=== PATIENT | male | born 1965 | race African-American/Black ===

== ENCOUNTER 2019-02-25 09:19 | Emergency (ER) | payer SELFPAY ==
[~2019-02-25] VITALS: Ht 185.4 cm; Wt 80.1 kg
[2019-02-25 09:27] VITALS: Ht 185.4 cm; Wt 80.1 kg
[2019-02-25 10:12] LABS: PLATELET COUNT 312 x10^3mcL (130-400)
[2019-02-25 10:29] LABS: CARBON DIOXIDE 25.6 mmol/L (21-32); CHLORIDE SERUM 98 mmol/L (98-107); CREATININE SERUM 1.3 mg/dL (0.7-1.3); GFR1 > 60 mL/min; GLUCOSE SERUM 195 mg/dL (74-106); POTASSIUM SERUM 3.8 mmol/L (3.5-5.1); SODIUM SERUM 134 mmol/L (136-145)
[2019-02-25 10:33] LABS: ALBUMIN 3.7 g/dL (3.4-5.0); ALKALINE PHOSPHATASE 93 U/L (46-116); ALT/SGPT 40 U/L (16-63); AST/SGOT 18 U/L (15-37); BILIRUBIN TOTAL 0.72 mg/dL (0.20-1.00); TOTAL PROTEIN, SERUM 7.5 g/dL (6.4-8.2)
[2019-02-25 11:37] LABS: BAND NEUTROPHIL 1 % (0-10); BASOPHIL 0 % (0-2); MONOCYTE 7 % (0-7); SEGMENTED NEUTROPHILS 83 % (37-75)
[2019-02-25 11:38] LABS: PLATELET MORPHOLOGY PLATELETS INCREASED; rbc morphology (normal/abnorm) ABNORMAL (NORMAL)
[2019-02-25 14:03] VITALS: BP 140/86
== END 2019-02-25 14:03 | disposition home or self-care (01) ==
LOC: EDBD 09:19 → ED 09:19
PROVIDERS: Emergency Medicine
DX: I63.9 Cerebral infarction, unspecified (principal); I10 Essential (primary) hypertension; F17.210 Nicotine dependence, cigarettes, uncomplicated
CPT/HCPCS: 99406; J0780; J2997; J7030; Q9967